=== PATIENT | male | born 1965 | race American Indian/Alaskan Native ===

== ENCOUNTER 2018-11-06 07:49 | Emergency (ER) | payer BC, OTHER ==
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
--- NOTE | 2018-11-06 10:05 | XRay Report ---
LUMBOSACRAL SPINE, 3 VIEWS: History: Back pain Findings: The vertebral bodies, disk spaces and posterior elements are intact. No compression deformity or malalignment. The SI joints are symmetric and unremarkable. Mild degenerative disc disease is noted at L2-3. Mild facet arthropathy at L4-5. Impression: 1. No evidence for acute injury to the lumbar spine.
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
[2018-11-06 11:36] VITALS: BP 154/79
== END 2018-11-06 11:36 | disposition home or self-care (01) ==
LOC: ED 07:49
DX: S16.1XXA Strain of muscle, fascia and tendon at neck level, initial encounter (principal); S46.919A Strain of unspecified muscle, fascia and tendon at shoulder and upper arm level, unspecified arm, initial encounter; S39.012A Strain of muscle, fascia and tendon of lower back, initial encounter; I10 Essential (primary) hypertension; E11.9 Type 2 diabetes mellitus without complications; E78.5 Hyperlipidemia, unspecified; Z88.4 Allergy status to anesthetic agent; V89.2XXA Person injured in unspecified motor-vehicle accident, traffic, initial encounter; Y93.89 Activity, other specified; Y92.410 Unspecified street and highway as the place of occurrence of the external cause; Y99.8 Other external cause status
CPT/HCPCS: 72100; 72125; 82962